=== PATIENT | male | born 2000 | race Caucasian/White ===

== ENCOUNTER 2019-04-26 13:47 | Emergency (ER) | payer OTHER ==
[2019-04-26] MEDS ORDERED: methylPREDNISolone SOD SUCCI 125 MG/2 ML VIAL IV STA (14:03)
[2019-04-26] MEDS ORDERED: FAMOTIDINE 20 MG/2 ML VIAL IV STA (14:03)
[2019-04-26] MEDS ORDERED: diphenhydrAMINE 50 MG/ML 1 ML VIAL IVP STA (14:03)
[2019-04-26] MEDS ORDERED: LORazepam 2 MG/ML INJ IV STA (14:33)
--- NOTE | 2019-04-26 14:45 | ED ---
General Adult HPI - General Chief complaint: Allergic Reaction Stated complaint: Allergic reaction Time Seen by Provider: 04/26/19 14:00 Source: patient, RN notes reviewed Mode of arrival: wheelchair Limitations: no limitations - History of Present Illness Initial comments: 18-year-old male presents to the emergency department for a possible ALLERGIC re action. Patient apparently took a vitamin D pill for the first time at approximately 11:30 this morning. About one hour later at 12:30 patient started to develop some shortness of breath. Patient became concerned that this was an ALLERGIC reaction. He denies any swelling of the lips tongue or throat. Denies any sensation of closing of the throat or pill stuck in throat. Grandmother states he called the doctor who told them it could be an ALLERGIC reaction to something in the medication and to come to the ER. At this time patient is complaining of shortness of breath, denying any chest pain. Patient has no other complaints at this time including chest pain, abdominal pain, nausea or vomiting, headache, or visual changes. - Related Data Allergies Allergy/AdvReac Type Severity Reaction Status Date / Time No Known Allergies Allergy Verified 04/26/19 13:50 Review of Systems ROS Statement: Those systems with pertinent positive or pertinent negative responses have been documented in the HPI. ROS Other: All systems not noted in ROS Statement are negative. Past Medical History Past Medical History: No Reported History History of Any Multi-Drug Resistant Organisms: None Reported Past Surgical History: No Surgical Hx Reported Past Psychological History: No Psychological Hx Reported Smoking Status: Never smoker Past Alcohol Use History: None Reported Past Drug Use History: None Reported General Exam Limitations: no limitations General appearance: alert, in no apparent distress Head exam: Present: atraumatic, normocephalic, normal inspection Eye exam: Present: normal appearance, PERRL, EOMI. Absent: scleral icterus, conjunctival injection, periorbital swelling ENT exam: Present: normal exam, mucous membranes moist Neck exam: Present: normal inspection, full ROM. Absent: tenderness, meningismus, lymphadenopathy Respiratory exam: Present: normal lung sounds bilaterally. Absent: respiratory distress, wheezes, rales, rhonchi, stridor Cardiovascular Exam: Present: regular rate, normal rhythm, normal heart sounds. Absent: systolic murmur, diastolic murmur, rubs, gallop, clicks GI/Abdominal exam: Present: soft, normal bowel sounds. Absent: distended, tenderness, guarding, rebound, rigid Neurological exam: Present: alert, oriented X3, CN II-XII intact Psychiatric exam: Present: anxious Course Vital Signs 04/26/19 04/26/19 13:50 15:20 Temperature 97.7 F 98 F Pulse Rate 101 H 86 Respiratory 24 16 Rate Blood Pressure 126/87 126/74 O2 Sat by Pulse 100 98 Oximetry Medical Decision Making - Medical Decision Making 18-year-old male presents to the emergency department for possible ALLERGIC reaction. Patient took vitamin D for the first time this morning and about one hour later started to develop shortness of breath. Denies any swelling of the lips tongue or throat. Denies any sensation of the throat closing. Patient does have history of anxiety. A presentation patient is breathing quickly and appears anxious. No rash noted. No slurring of the lips tongue or throat. Patient was given Benadryl Pepcid and Solu-Medrol to treat any component of ALLERGIC reaction although this seems more related to anxiety. He is also given some Ativan which helped. Chest x-ray was negative shows no acute cardiopulmonary process. There is mild narrowing of the infraglottic airway that likely relates to phase of inspiration. Patient reevaluated, feeling back to his normal self. Denies any shortness of breath whatsoever. Denies any swelling of the throat. Vitals are stable. Patient is 99% on room air discharge. Patient will follow up with primary care will return here if you have any worsening symptoms. Disposition Clinical Impression: Allergic reaction Disposition: HOME SELF-CARE Condition: Good Instructions (If sedation given, give patient instructions): General Allergic Reaction (ED) Additional Instructions: Please take Benadryl as needed. Please follow-up with primary care in 1-2 days. If you have any worsening symptoms return here to the emergency department. Is patient prescribed a controlled substance at d/c from ED?: No Referrals: Veronica Bbo MD [Primary Care Provider] - 1-2 days Time of Disposition: 16:11
[2019-04-26 15:21] VITALS: BP 126/74; PULSE 86; RESP 16; TEMP 98
--- NOTE | 2019-04-26 15:21 | XR ---
EXAMINATION TYPE: XR chest 2V DATE OF EXAM: 04/26/2019 COMPARISON: NONE HISTORY: Shortness of breath. The patient feels like their throat is closing from possible allergic r eaction. TECHNIQUE: Frontal and lateral views of the chest are obtained. FINDINGS: There is no focal air space opacity, pleural effusion, or pneumothorax seen. The cardiac silhouette size is within normal limits. The osseous structures are intact. Some narrowing of the i nfraglottic airway is likely related to phase of inspiration. IMPRESSION: No acute cardiopulmonary process. Mild narrowing of the infraglottic airway likely relat es to phase of inspiration although soft tissue neck radiographs performed if there is continued shor tness of breath.
== END 2019-04-26 16:47 | disposition home or self-care (01) ==
LOC: EC 13:47
DX: T78.40XA Allergy, unspecified, initial encounter (principal); R06.02 Shortness of breath
CPT/HCPCS: 71046; 99283; 96374; 96375 ×3; J2060; J1200; J2930